=== PATIENT | male | born 1945 | race Two or more races ===

== ENCOUNTER 2022-12-02 18:22 | Inpatient (IN) | payer OTHER ==
[2022-12-02 18:58] VITALS: BMI 26.6
[2022-12-02 21:01] LABS: BASO % 0.4 % (0-2.0); EOS % 6.6 % (0-4.5); HEMATOCRIT 34.5 % (35.4-49); HEMOGLOBIN 12.2 GM/dL (11.7-16.9); LYMPH % 27.5 % (8-40); MCH 31.2 pg (25.7-33.7); MCHC 35.4 g/dl (32.0-35.9); MEAN CELL VOLUME 88.2 fl (80-96); NEUT % 56.5 % (42.8-82.8); PLATELET COUNT 304 10^3/uL (134-434); RBC 3.91 M/mm3 (4.00-5.60); RDW 14.7 % (11.9-15.9); WHITE BLOOD COUNT 7.4 K/mm3 (4.0-10.0)
[2022-12-02 21:07] LABS: INR 1.16 (0.83-1.09); PROTHROMBIN TIME (PATIENT) 13.4 SEC (9.7-13.0)
[2022-12-02 21:09] LABS: ACTIVATED PTT 35.2 SECONDS (25.2-36.5)
[2022-12-02 21:20] LABS: POTASSIUM 4.4 mmol/L (3.5-5.1)
[2022-12-02 21:22] LABS: ALBUMIN 3.6 g/dl (3.4-5.0); BLOOD UREA NITROGEN 17.6 mg/dL (7-18); MAGNESIUM 1.5 mg/dL (1.8-2.4)
[2022-12-02 21:25] LABS: CREATININE 1.6 mg/dL (0.55-1.3)
[2022-12-02 21:27] LABS: TOT PROT 7.5 g/dl (6.4-8.2)
[2022-12-02] MEDS ORDERED: SODIUM CHLORIDE 0.9% 500 ML INFUS.BAG IV ONE (22:01)
[2022-12-02 23:52] LABS: EPI CELLS 3 /uL (0-25.1); HYALINE CASTS 1 /uL (0-3.1); PH,URINE 8.5 (5.0-8.0); URINE APPEARANCE CLOUDY; URINE BACTERIA >9,000 /uL (0-1359); URINE BILIRUBIN NEGATIVE (NEGATIVE); URINE COLOR YELLOW; URINE GLUCOSE (UA) NEGATIVE (NEGATIVE); URINE KETONE TRACE (NEGATIVE); URINE LEUK ESTERASE 2+ (NEGATIVE); URINE NITRITE NEGATIVE (NEGATIVE); URINE PROTEIN 2+ (NEGATIVE); URINE WBC 320 /uL (0-25.8)
[2022-12-03] MEDS ORDERED: NITROGLYCERIN 25MG/D5W 250ML 25 MG/250 ML ML IVPB ONE (00:04)
[2022-12-03] MEDS ORDERED: FUROSEMIDE 40 MG/4 ML INJECTABLE VIAL ONE (00:33)
[2022-12-03] MEDS ORDERED: MINERAL OIL ENEMA 133 ML ENEMA RC ONE (04:07)
[2022-12-03] MEDS ORDERED: POLYETHYLENE GLYCOL (HEALTHYLAX) 3350 17 GM PACKET PO ONE (04:15)
[2022-12-03] MEDS ORDERED: MAGNESIUM CITRATE 300 ML BOTTLE PO ONE (04:30)
[2022-12-03] MEDS ORDERED: SODIUM CHLORIDE 1,000 ML IV SCH (04:30)
[2022-12-03] MEDS ORDERED: MAGNESIUM CITRATE 300 ML BOTTLE ONE (05:52)
[2022-12-03] MEDS ORDERED: HEPARIN NA (PORCINE) 5,000 UNITS/ML 1ML VIAL ONE (05:52)
[2022-12-03] MEDS ORDERED: POLYETHYLENE GLYCOL (HEALTHYLAX) 3350 17 GM PACKET ONE (05:52)
[2022-12-03] MEDS: HEPARIN NA (PORCINE) 5,000 UNITS/ML 1ML VIAL SQ SCH ×3 (06:19→22:46)
[2022-12-03] MEDS ORDERED: sitaGLIPtin PHOSPHATE 50 MG TABLET PO SCH (07:00)
[2022-12-03] MEDS ORDERED: TAMSULOSIN HCL 0.4 MG CAP PO SCH (08:30)
[2022-12-03] MEDS: metroNIDAZOLE 250 MG TABLET PO SCH ×3 (08:58→22:46)
[2022-12-03] MEDS ORDERED: POLYETHYLENE GLYCOL (HEALTHYLAX) 3350 17 GM PACKET PO SCH (10:00)
[2022-12-03] MEDS ORDERED: SODIUM PHOSPHATE/NA BIPHOS 133 ML ENEMA RC ONE (10:00)
[2022-12-03] MEDS: amLODIPine BESYLATE 10 MG TABLET (FP) PO SCH (10:32)
[2022-12-03 12:19] LABS: BASO % 0.3 % (0-2.0); EOS % 5.8 % (0-4.5); HEMATOCRIT 35.3 % (35.4-49); HEMOGLOBIN 11.7 GM/dL (11.7-16.9); LYMPH % 25.2 % (8-40); MCH 30.3 pg (25.7-33.7); MCHC 33.2 g/dl (32.0-35.9); MEAN CELL VOLUME 91.3 fl (80-96); MEAN PLT VOLUME 7.5 fl (7.5-11.1); MONO % 8.6 % (3.8-10.2); NEUT % 60.1 % (42.8-82.8); PLATELET COUNT 296 10^3/uL (134-434); RBC 3.86 M/mm3 (4.00-5.60); RDW 14.6 % (11.9-15.9); WHITE BLOOD COUNT 6.7 K/mm3 (4.0-10.0)
[2022-12-03 12:37] LABS: POTASSIUM 4.3 mmol/L (3.5-5.1)
[2022-12-03 12:39] LABS: BLOOD UREA NITROGEN 18.6 mg/dL (7-18)
[2022-12-03 12:42] LABS: CREATININE 1.4 mg/dL (0.55-1.3)
[2022-12-03] MEDS ORDERED: D5-1/2NS+10 MEQ KCL - 10 MEQ/1,000 ML INFUS.BAG IV SCH (16:00)
[2022-12-03] MEDS: SODIUM CHLORIDE 1,000 ML IV SCH (16:54)
[2022-12-03] MEDS: CEFTRIAXONE 1 GM in DEXTROSE 5%-WATER - 50 ML IVPB SCH (16:54)
[2022-12-03] MEDS: INSULIN SLIDING SCALE (NOVOLOG) 1 VIAL SQ SCH (17:21)
[2022-12-03] MEDS ORDERED: FLU VACCINE (FLULAVAL) PF 60 MCG/0.5 ML SYRINGE 2023-2024 IM ONE (20:00)
[2022-12-03] MEDS ORDERED: SENNOSIDES 8.6MG TABLET (FP) PO SCH (22:00)
[2022-12-03] MEDS: ATORVASTATIN CA 10 MG TABLET (FP) PO SCH (22:46)
[2022-12-03] MEDS: TAMSULOSIN HCL 0.4 MG CAP PO SCH (22:46)
[2022-12-04] MEDS: HEPARIN NA (PORCINE) 5,000 UNITS/ML 1ML VIAL SQ SCH ×3 (06:15→21:12)
[2022-12-04] MEDS: metroNIDAZOLE 250 MG TABLET PO SCH ×3 (06:15→21:10)
[2022-12-04] MEDS: INSULIN SLIDING SCALE (NOVOLOG) 1 VIAL SQ SCH ×3 (06:19→17:10)
[2022-12-04] MEDS ORDERED: PNEUMOC 20-VAL CONJ-DIP CRM/PF 0.5 ML SYRINGE IM ONE (10:00)
[2022-12-04 10:01] LABS: BASO % 0.4 % (0-2.0); EOS % 4.8 % (0-4.5); HEMATOCRIT 31.5 % (35.4-49); HEMOGLOBIN 10.7 GM/dL (11.7-16.9); LYMPH % 24.8 % (8-40); MCH 30.4 pg (25.7-33.7); MEAN CELL VOLUME 89.6 fl (80-96); MEAN PLT VOLUME 7.5 fl (7.5-11.1); MONO % 7.6 % (3.8-10.2); NEUT % 62.4 % (42.8-82.8); PLATELET COUNT 297 10^3/uL (134-434); RBC 3.52 M/mm3 (4.00-5.60); RDW 14.6 % (11.9-15.9); WHITE BLOOD COUNT 6.9 K/mm3 (4.0-10.0)
[2022-12-04 10:35] LABS: POTASSIUM 4.3 mmol/L (3.5-5.1)
[2022-12-04 10:38] LABS: ALBUMIN 3.1 g/dl (3.4-5.0); CALCIUM 8.7 mg/dL (8.5-10.1); MAGNESIUM 1.8 mg/dL (1.8-2.4)
[2022-12-04 10:42] LABS: BILIRUBIN,TOTAL 0.6 mg/dL (0.2-1); CREATININE 1.4 mg/dL (0.55-1.3); PHOSPHOROUS 2.4 mg/dL (2.5-4.9)
[2022-12-04 10:43] LABS: TOT PROT 6.5 g/dl (6.4-8.2)
[2022-12-04] MEDS: amLODIPine BESYLATE 10 MG TABLET (FP) PO SCH (10:51)
[2022-12-04] MEDS: CEFTRIAXONE 1 GM in DEXTROSE 5%-WATER - 50 ML IVPB SCH (10:51)
[2022-12-04 11:33] LABS: EPI CELLS 15 /uL (0-25.1); HYALINE CASTS 1 /uL (0-3.1); PH,URINE 5.5 (5.0-8.0); URINE APPEARANCE CLEAR; URINE BACTERIA 9 /uL (0-1359); URINE BILIRUBIN NEGATIVE (NEGATIVE); URINE COLOR YELLOW; URINE GLUCOSE (UA) NEGATIVE (NEGATIVE); URINE KETONE 2+ (NEGATIVE); URINE LEUK ESTERASE 1+ (NEGATIVE); URINE NITRITE NEGATIVE (NEGATIVE); URINE PROTEIN 1+ (NEGATIVE); URINE UROBILINOGEN 0.2 mg/dL (0.2-1.0); URINE WBC 170 /uL (0-25.8)
[2022-12-04 11:36] LABS: URINE RBC 170.8 /uL (0-23.9); YEAST NEGATIVE (NEGATIVE)
[2022-12-04] MEDS ORDERED: NAPH,MB-DB/K PH,MBDB POWDER PACKET PO ONE (12:30)
[2022-12-04] MEDS: SODIUM CHLORIDE 1,000 ML IV SCH (21:10)
[2022-12-04] MEDS: TAMSULOSIN HCL 0.4 MG CAP PO SCH (21:11)
[2022-12-04] MEDS: ATORVASTATIN CA 10 MG TABLET (FP) PO SCH (21:12)
[2022-12-05] MEDS: metroNIDAZOLE 250 MG TABLET PO SCH ×3 (05:26→21:16)
[2022-12-05] MEDS: HEPARIN NA (PORCINE) 5,000 UNITS/ML 1ML VIAL SQ SCH ×3 (05:26→21:17)
[2022-12-05] MEDS: INSULIN SLIDING SCALE (NOVOLOG) 1 VIAL SQ SCH ×3 (06:51→18:07)
[2022-12-05] MEDS: CEFTRIAXONE 1 GM in DEXTROSE 5%-WATER - 50 ML IVPB SCH (09:36)
[2022-12-05] MEDS: amLODIPine BESYLATE 10 MG TABLET (FP) PO SCH (09:36)
[2022-12-05] MEDS: SODIUM CHLORIDE 1,000 ML IV SCH (09:38)
[2022-12-05 10:27] LABS: BASO % 0.6 % (0-2.0); EOS % 5.1 % (0-4.5); HEMATOCRIT 33.1 % (35.4-49); HEMOGLOBIN 11.4 GM/dL (11.7-16.9); LYMPH % 31.2 % (8-40); MCH 30.6 pg (25.7-33.7); MCHC 34.3 g/dl (32.0-35.9); MEAN CELL VOLUME 89.1 fl (80-96); MEAN PLT VOLUME 7.2 fl (7.5-11.1); MONO % 8.2 % (3.8-10.2); NEUT % 54.9 % (42.8-82.8); PLATELET COUNT 295 10^3/uL (134-434); RBC 3.72 M/mm3 (4.00-5.60); RDW 14.8 % (11.9-15.9); WHITE BLOOD COUNT 7.2 K/mm3 (4.0-10.0)
[2022-12-05 10:37] LABS: POTASSIUM 4.2 mmol/L (3.5-5.1)
[2022-12-05 10:41] LABS: CALCIUM 8.6 mg/dL (8.5-10.1)
[2022-12-05 10:42] LABS: ALBUMIN 3.1 g/dl (3.4-5.0); BLOOD UREA NITROGEN 15.4 mg/dL (7-18); MAGNESIUM 1.8 mg/dL (1.8-2.4)
[2022-12-05 10:45] LABS: CREATININE 1.3 mg/dL (0.55-1.3); PHOSPHOROUS 2.4 mg/dL (2.5-4.9)
[2022-12-05 10:46] LABS: BILIRUBIN,TOTAL 0.6 mg/dL (0.2-1); TOT PROT 6.7 g/dl (6.4-8.2)
[2022-12-05] MEDS: NAPH,MB-DB/K PH,MBDB POWDER PACKET PO SCH ×2 (15:42→21:17)
[2022-12-05] MEDS: TAMSULOSIN HCL 0.4 MG CAP PO SCH (21:17)
[2022-12-05] MEDS: ATORVASTATIN CA 10 MG TABLET (FP) PO SCH (21:17)
[2022-12-06] MEDS: SODIUM CHLORIDE 1,000 ML IV SCH ×2 (04:29→20:59)
[2022-12-06] MEDS: HEPARIN NA (PORCINE) 5,000 UNITS/ML 1ML VIAL SQ SCH ×3 (05:10→21:24)
[2022-12-06] MEDS: metroNIDAZOLE 250 MG TABLET PO SCH ×3 (05:10→21:24)
[2022-12-06] MEDS: INSULIN SLIDING SCALE (NOVOLOG) 1 VIAL SQ SCH ×3 (06:30→17:39)
[2022-12-06 08:43] LABS: BASO % 0.4 % (0-2.0); EOS % 6.4 % (0-4.5); HEMATOCRIT 34.8 % (35.4-49); HEMOGLOBIN 11.6 GM/dL (11.7-16.9); LYMPH % 19.8 % (8-40); MCH 29.8 pg (25.7-33.7); MCHC 33.3 g/dl (32.0-35.9); MEAN CELL VOLUME 89.6 fl (80-96); MEAN PLT VOLUME 7.1 fl (7.5-11.1); NEUT % 65.4 % (42.8-82.8); PLATELET COUNT 313 10^3/uL (134-434); RBC 3.88 M/mm3 (4.00-5.60); RDW 14.7 % (11.9-15.9); WHITE BLOOD COUNT 6.2 K/mm3 (4.0-10.0)
[2022-12-06] MEDS: CEFTRIAXONE 1 GM in DEXTROSE 5%-WATER - 50 ML IVPB SCH (09:14)
[2022-12-06] MEDS: amLODIPine BESYLATE 10 MG TABLET (FP) PO SCH (09:15)
[2022-12-06] MEDS: LACTOBACILLUS ACIDOPHILUS 1 TABLET PO SCH (09:15)
[2022-12-06 09:22] LABS: BILIRUBIN,TOTAL 0.6 mg/dL (0.2-1); CALCIUM 8.6 mg/dL (8.5-10.1); CREATININE 1.2 mg/dL (0.55-1.3); MAGNESIUM 1.5 mg/dL (1.8-2.4); PHOSPHOROUS 2.3 mg/dL (2.5-4.9); POTASSIUM 4.3 mmol/L (3.5-5.1); TOT PROT 6.7 g/dl (6.4-8.2)
[2022-12-06] MEDS ORDERED: MAGNESIUM SULF 50% (8.12 MEQ/2 ML-1 GM VIAL) IVPB ONE (10:30)
[2022-12-06] MEDS ORDERED: SODIUM PHOSPHATE - 15 MM in SODIUM CHLORIDE 250 ML IVPB ONE (11:00)
[2022-12-06 13:58] LABS: ERYTHROCYTE SEDIMENTATION RATE 95 mm/hr (0-20)
[2022-12-06] MEDS: ATORVASTATIN CA 10 MG TABLET (FP) PO SCH (21:24)
[2022-12-06] MEDS: TAMSULOSIN HCL 0.4 MG CAP PO SCH (21:24)
[2022-12-07] MEDS: HEPARIN NA (PORCINE) 5,000 UNITS/ML 1ML VIAL SQ SCH ×3 (06:08→21:36)
[2022-12-07] MEDS: metroNIDAZOLE 250 MG TABLET PO SCH ×3 (06:08→21:35)
[2022-12-07] MEDS: INSULIN SLIDING SCALE (NOVOLOG) 1 VIAL SQ SCH ×3 (06:21→17:37)
[2022-12-07] MEDS: LACTOBACILLUS ACIDOPHILUS 1 TABLET PO SCH (09:48)
[2022-12-07] MEDS: CEFTRIAXONE 1 GM in DEXTROSE 5%-WATER - 50 ML IVPB SCH (09:48)
[2022-12-07] MEDS: amLODIPine BESYLATE 10 MG TABLET (FP) PO SCH (09:48)
[2022-12-07 11:11] LABS: BASO % 0.5 % (0-2.0); EOS % 6.7 % (0-4.5); HEMATOCRIT 32.9 % (35.4-49); HEMOGLOBIN 11.3 GM/dL (11.7-16.9); LYMPH % 21.2 % (8-40); MCH 30.6 pg (25.7-33.7); MCHC 34.4 g/dl (32.0-35.9); MEAN PLT VOLUME 7.3 fl (7.5-11.1); MONO % 8.3 % (3.8-10.2); NEUT % 63.3 % (42.8-82.8); PLATELET COUNT 305 10^3/uL (134-434); RDW 15.1 % (11.9-15.9); WHITE BLOOD COUNT 5.6 K/mm3 (4.0-10.0)
[2022-12-07 11:36] LABS: POTASSIUM 3.9 mmol/L (3.5-5.1)
[2022-12-07 11:47] LABS: CALCIUM 8.2 mg/dL (8.5-10.1)
[2022-12-07 11:48] LABS: BLOOD UREA NITROGEN 11.1 mg/dL (7-18); CREATININE 1.2 mg/dL (0.55-1.3); MAGNESIUM 1.8 mg/dL (1.8-2.4)
[2022-12-07 11:51] LABS: PHOSPHOROUS 2.1 mg/dL (2.5-4.9)
[2022-12-07 11:52] LABS: TOT PROT 6.3 g/dl (6.4-8.2)
[2022-12-07 11:53] LABS: BILIRUBIN,TOTAL 0.5 mg/dL (0.2-1)
[2022-12-07] MEDS: SODIUM CHLORIDE 1,000 ML IV SCH (17:36)
[2022-12-07] MEDS: TAMSULOSIN HCL 0.4 MG CAP PO SCH (21:35)
[2022-12-07] MEDS: ATORVASTATIN CA 10 MG TABLET (FP) PO SCH (21:35)
[2022-12-08] MEDS: metroNIDAZOLE 250 MG TABLET PO SCH ×3 (06:05→22:28)
[2022-12-08] MEDS: HEPARIN NA (PORCINE) 5,000 UNITS/ML 1ML VIAL SQ SCH ×3 (06:05→22:28)
[2022-12-08] MEDS: INSULIN SLIDING SCALE (NOVOLOG) 1 VIAL SQ SCH ×3 (06:31→16:43)
[2022-12-08] MEDS: SODIUM CHLORIDE 1,000 ML IV SCH (07:07)
[2022-12-08] MEDS: LACTOBACILLUS ACIDOPHILUS 1 TABLET PO SCH (09:27)
[2022-12-08] MEDS: CEFTRIAXONE 1 GM in DEXTROSE 5%-WATER - 50 ML IVPB SCH (09:27)
[2022-12-08] MEDS: amLODIPine BESYLATE 10 MG TABLET (FP) PO SCH (09:27)
[2022-12-08] MEDS ORDERED: MAGNESIUM 1GM/D5W 100ML - 100 ML IVPB IVPB ONE (14:00)
[2022-12-08] MEDS: ATORVASTATIN CA 10 MG TABLET (FP) PO SCH (22:29)
[2022-12-08] MEDS: TAMSULOSIN HCL 0.4 MG CAP PO SCH (22:29)
[2022-12-09] MEDS: metroNIDAZOLE 250 MG TABLET PO SCH ×2 (06:39→13:23)
[2022-12-09] MEDS: HEPARIN NA (PORCINE) 5,000 UNITS/ML 1ML VIAL SQ SCH ×2 (06:40→13:23)
[2022-12-09] MEDS: INSULIN SLIDING SCALE (NOVOLOG) 1 VIAL SQ SCH ×3 (06:44→16:22)
[2022-12-09 07:28] VITALS: RESP 18
[2022-12-09] MEDS: amLODIPine BESYLATE 10 MG TABLET (FP) PO SCH (09:26)
[2022-12-09] MEDS: CEFTRIAXONE 1 GM in DEXTROSE 5%-WATER - 50 ML IVPB SCH (09:26)
[2022-12-09] MEDS: LACTOBACILLUS ACIDOPHILUS 1 TABLET PO SCH (09:26)
[2022-12-09 14:22] VITALS: BP 127/56; PULSE 81; TEMP 98.7
[2022-12-09] MEDS: SODIUM CHLORIDE 1,000 ML IV SCH ×2 (14:48→16:21)
== END 2022-12-09 17:00 | disposition home or self-care (01) | DRG 249 ==
LOC: JER 18:22 → JERBED 12-03 00:53 → J5S 12-03 07:57
PROVIDERS: ADMIT Internal Medicine; ATTEND Internal Medicine
DX: A09 Infectious gastroenteritis and colitis, unspecified (principal); I10 Essential (primary) hypertension; E11.9 Type 2 diabetes mellitus without complications; Z79.84 Long term (current) use of oral hypoglycemic drugs; N40.0 Benign prostatic hyperplasia without lower urinary tract symptoms; K59.09 Other constipation; N17.9 Acute kidney failure, unspecified; R33.8 Other retention of urine; E78.5 Hyperlipidemia, unspecified; N39.0 Urinary tract infection, site not specified; B96.4 Proteus (mirabilis) (morganii) as the cause of diseases classified elsewhere
CPT/HCPCS: 36415; 74177-TC; 76775-TC; 80048; 80053; 81003; 82272; 82570; 82728; 82962; 83036; 83540; 83550; 83735; 83935; 83993; 84100; 84300; 84443; 84540; 85025; 85610; 85651; 85730; 86140; 87045; 87046; 87086; 87186; 87205; 87209; 87324; 87449; 90677; 90686; 97116-GP; 97162-GP; 99285-25; G0008; J1644; Q9967

== ENCOUNTER 2023-01-31 11:40 | Inpatient (IN) | payer OTHER ==
[2023-01-31 12:56] LABS: BASO % 0.3 % (0-2.0); EOS % 2.5 % (0-4.5); HEMATOCRIT 35.6 % (35.4-49); HEMOGLOBIN 12.1 GM/dL (11.7-16.9); LYMPH % 27.2 % (8-40); MCH 29.7 pg (25.7-33.7); MCHC 33.9 g/dl (32.0-35.9); MEAN CELL VOLUME 87.5 fl (80-96); MEAN PLT VOLUME 7.1 fl (7.5-11.1); PLATELET COUNT 292 10^3/uL (134-434); RBC 4.07 M/mm3 (4.00-5.60); RDW 13.9 % (11.9-15.9); WHITE BLOOD COUNT 5.9 K/mm3 (4.0-10.0)
[2023-01-31 13:06] LABS: POTASSIUM 4.1 mmol/L (3.5-5.1)
[2023-01-31 13:08] LABS: CALCIUM 9.2 mg/dL (8.5-10.1)
[2023-01-31 13:09] LABS: ALBUMIN 3.3 g/dl (3.4-5.0); BLOOD UREA NITROGEN 17.2 mg/dL (7-18)
[2023-01-31 13:12] LABS: CREATININE 1.2 mg/dL (0.55-1.3)
[2023-01-31 13:13] LABS: EPI CELLS 2 /uL (0-25.1); HYALINE CASTS 1 /uL (0-3.1); URINE APPEARANCE CLOUDY; URINE BACTERIA >9,000 /uL (0-1359); URINE BILIRUBIN NEGATIVE (NEGATIVE); URINE COLOR YELLOW; URINE GLUCOSE (UA) NEGATIVE (NEGATIVE); URINE KETONE NEGATIVE (NEGATIVE); URINE LEUK ESTERASE 3+ (NEGATIVE); URINE NITRITE POSITIVE (NEGATIVE); URINE PROTEIN TRACE (NEGATIVE); URINE RBC 19 /uL (0-23.9); URINE UROBILINOGEN 0.2 mg/dL (0.2-1.0); URINE WBC 579 /uL (0-25.8)
[2023-01-31 13:14] LABS: BILIRUBIN,TOTAL 0.6 mg/dL (0.2-1); TOT PROT 7.2 g/dl (6.4-8.2)
[2023-01-31 13:17] LABS: INR 1.12 (0.83-1.09); N-TERMINAL BNP 183.3 pg/ml (5-450)
[2023-01-31 13:20] LABS: ACTIVATED PTT 33.6 SECONDS (25.2-36.5)
[2023-01-31 13:39] LABS: YEAST 3+ (NEGATIVE)
[2023-01-31] MEDS: INSULIN ASPART SLIDING SCALE (NOVOLOG) 1 VIAL SQ SCH (22:40)
[2023-01-31] MEDS ORDERED: SODIUM CHLORIDE 1,000 ML IV STA (23:14)
[2023-01-31] MEDS ORDERED: SODIUM CHLORIDE 1,000 ML IV SCH (23:15)
[2023-01-31 23:42] VITALS: BMI 23.5
[2023-02-01] MEDS: INSULIN ASPART SLIDING SCALE (NOVOLOG) 1 VIAL SQ SCH ×4 (06:31→22:15)
[2023-02-01 08:37] LABS: HEMATOCRIT 33.6 % (35.4-49); HEMOGLOBIN 11.5 GM/dL (11.7-16.9); MCH 30.1 pg (25.7-33.7); MCHC 34.3 g/dl (32.0-35.9); MEAN CELL VOLUME 87.8 fl (80-96); MEAN PLT VOLUME 7.4 fl (7.5-11.1); PLATELET COUNT 260 10^3/uL (134-434); RBC 3.83 M/mm3 (4.00-5.60); RDW 14.1 % (11.9-15.9); WHITE BLOOD COUNT 5.1 K/mm3 (4.0-10.0)
[2023-02-01] MEDS: TAMSULOSIN HCL 0.4 MG CAP PO SCH (09:14)
[2023-02-01 09:21] LABS: BLOOD UREA NITROGEN 14.2 mg/dL (7-18)
[2023-02-01 09:22] LABS: CALCIUM 8.8 mg/dL (8.5-10.1)
[2023-02-01 09:25] LABS: ALBUMIN 2.9 g/dl (3.4-5.0)
[2023-02-01 09:27] LABS: CREATININE 1.1 mg/dL (0.55-1.3)
[2023-02-01 09:28] LABS: BILIRUBIN,DIRECT 0.2 mg/dL (0.0-0.2)
[2023-02-01 09:30] LABS: BILIRUBIN,TOTAL 0.5 mg/dL (0.2-1); TOT PROT 6.5 g/dl (6.4-8.2)
[2023-02-01] MEDS ORDERED: ENOXAPARIN NA (PORCINE) 40 MG/0.4 ML DISP.SYRIN SQ SCH (10:00)
[2023-02-01] MEDS ORDERED: amLODIPine BESYLATE 10 MG TABLET (FP) PO SCH (10:00)
[2023-02-01] MEDS: SODIUM CHLORIDE 1,000 ML IV SCH (16:33)
[2023-02-01 20:12] LABS: HIV INTERPRETATION NEGATIVE (NEGATIVE)
[2023-02-01] MEDS: ATORVASTATIN CA 10 MG TABLET (FP) PO SCH (22:12)
[2023-02-02] MEDS: INSULIN ASPART SLIDING SCALE (NOVOLOG) 1 VIAL SQ SCH ×4 (06:05→21:37)
[2023-02-02] MEDS: SODIUM CHLORIDE 1,000 ML IV SCH ×2 (06:06→16:41)
[2023-02-02] MEDS ORDERED: cefTRIAXone SODIUM 1 GM VIAL ONE (09:47)
[2023-02-02] MEDS ORDERED: CEFTRIAXONE 1 GM in DEXTROSE 5%-WATER - 50 ML IVPB SCH (10:00)
[2023-02-02] MEDS: TAMSULOSIN HCL 0.4 MG CAP PO SCH (10:01)
[2023-02-02 10:34] LABS: HEMATOCRIT 33.4 % (35.4-49); HEMOGLOBIN 11.2 GM/dL (11.7-16.9); MCH 29.4 pg (25.7-33.7); MCHC 33.7 g/dl (32.0-35.9); MEAN CELL VOLUME 87.4 fl (80-96); MEAN PLT VOLUME 7.3 fl (7.5-11.1); PLATELET COUNT 249 10^3/uL (134-434); RBC 3.82 M/mm3 (4.00-5.60); RDW 14.1 % (11.9-15.9); WHITE BLOOD COUNT 4.8 K/mm3 (4.0-10.0)
[2023-02-02 11:09] LABS: POTASSIUM 3.9 mmol/L (3.5-5.1)
[2023-02-02] MEDS ORDERED: PEG 3350/NA SULF BICARB CL/KCL 4000 ML SOLN.RECON PO ONE (11:54)
[2023-02-02 12:07] LABS: ALBUMIN 2.8 g/dl (3.4-5.0)
[2023-02-02 12:08] LABS: BLOOD UREA NITROGEN 9.6 mg/dL (7-18); CALCIUM 8.4 mg/dL (8.5-10.1)
[2023-02-02 12:11] LABS: CREATININE 0.9 mg/dL (0.55-1.3)
[2023-02-02 12:12] LABS: BILIRUBIN,TOTAL 0.6 mg/dL (0.2-1); TOT PROT 6.1 g/dl (6.4-8.2)
[2023-02-02] MEDS ORDERED: MEROPENEM 1 GM in DEXTROSE 5%-WATER 100 ML IVPB ONE (17:58)
[2023-02-02] MEDS: MEROPENEM 1 GM in DEXTROSE 5%-WATER 100 ML IVPB SCH (18:18)
[2023-02-02] MEDS: ATORVASTATIN CA 10 MG TABLET (FP) PO SCH (21:33)
[2023-02-03] MEDS: MEROPENEM 1 GM in DEXTROSE 5%-WATER 100 ML IVPB SCH ×3 (01:36→21:40)
[2023-02-03] MEDS ORDERED: MEROPENEM 1 GM in DEXTROSE 5%-WATER 100 ML IVPB SCH (02:00)
[2023-02-03] MEDS: INSULIN ASPART SLIDING SCALE (NOVOLOG) 1 VIAL SQ SCH ×4 (05:59→21:50)
[2023-02-03] MEDS: TAMSULOSIN HCL 0.4 MG CAP PO SCH (10:20)
[2023-02-03 10:53] LABS: BASO % 0.5 % (0-2.0); EOS % 3.7 % (0-4.5); HEMOGLOBIN 11.9 GM/dL (11.7-16.9); LYMPH % 27.4 % (8-40); MCH 29.7 pg (25.7-33.7); MCHC 33.9 g/dl (32.0-35.9); MEAN CELL VOLUME 87.4 fl (80-96); MEAN PLT VOLUME 7.6 fl (7.5-11.1); MONO % 10.1 % (3.8-10.2); NEUT % 58.3 % (42.8-82.8); PLATELET COUNT 277 10^3/uL (134-434); RBC 4.01 M/mm3 (4.00-5.60); RDW 14.1 % (11.9-15.9); WHITE BLOOD COUNT 5.1 K/mm3 (4.0-10.0)
[2023-02-03 11:10] LABS: CALCIUM 8.5 mg/dL (8.5-10.1)
[2023-02-03 11:11] LABS: ALBUMIN 2.9 g/dl (3.4-5.0); BLOOD UREA NITROGEN 9.3 mg/dL (7-18); MAGNESIUM 1.5 mg/dL (1.8-2.4)
[2023-02-03 11:15] LABS: CREATININE 1.1 mg/dL (0.55-1.3); PHOSPHOROUS 2.7 mg/dL (2.5-4.9)
[2023-02-03 11:16] LABS: BILIRUBIN,TOTAL 0.8 mg/dL (0.2-1); TOT PROT 6.5 g/dl (6.4-8.2)
[2023-02-03] MEDS: ATORVASTATIN CA 10 MG TABLET (FP) PO SCH (21:50)
[2023-02-03] MEDS ORDERED: ACETAMINOPHEN 1000 MG/100 ML BAG IVPB ONE (22:00)
[2023-02-04] MEDS: MEROPENEM 1 GM in DEXTROSE 5%-WATER 100 ML IVPB SCH ×2 (05:15→18:20)
[2023-02-04] MEDS: INSULIN ASPART SLIDING SCALE (NOVOLOG) 1 VIAL SQ SCH ×4 (06:24→21:57)
[2023-02-04] MEDS: TAMSULOSIN HCL 0.4 MG CAP PO SCH (09:22)
[2023-02-04 10:18] LABS: HEMATOCRIT 34.2 % (35.4-49); HEMOGLOBIN 11.6 GM/dL (11.7-16.9); MCH 29.6 pg (25.7-33.7); MCHC 34.1 g/dl (32.0-35.9); MEAN CELL VOLUME 86.8 fl (80-96); MEAN PLT VOLUME 7.6 fl (7.5-11.1); PLATELET COUNT 258 10^3/uL (134-434); RBC 3.94 M/mm3 (4.00-5.60); RDW 14.1 % (11.9-15.9); WHITE BLOOD COUNT 4.5 K/mm3 (4.0-10.0)
[2023-02-04 10:29] LABS: POTASSIUM 4.1 mmol/L (3.5-5.1)
[2023-02-04 10:34] LABS: ALBUMIN 2.8 g/dl (3.4-5.0); BLOOD UREA NITROGEN 10.8 mg/dL (7-18)
[2023-02-04 10:37] LABS: CREATININE 1.1 mg/dL (0.55-1.3)
[2023-02-04 10:39] LABS: BILIRUBIN,TOTAL 0.9 mg/dL (0.2-1); TOT PROT 6.1 g/dl (6.4-8.2)
[2023-02-04] MEDS: ATORVASTATIN CA 10 MG TABLET (FP) PO SCH (21:43)
[2023-02-05] MEDS ORDERED: MEROPENEM 1 GM VIAL (RESTRICTED TO ID) IVPB ONE (01:10)
[2023-02-05] MEDS: MEROPENEM 1 GM in DEXTROSE 5%-WATER 100 ML IVPB SCH ×3 (01:15→10:00)
[2023-02-05] MEDS: INSULIN ASPART SLIDING SCALE (NOVOLOG) 1 VIAL SQ SCH ×4 (06:22→21:45)
[2023-02-05] MEDS: TAMSULOSIN HCL 0.4 MG CAP PO SCH (10:00)
[2023-02-05 10:11] LABS: BASO % 0.4 % (0-2.0); EOS % 4.3 % (0-4.5); HEMATOCRIT 34.9 % (35.4-49); MCH 30.1 pg (25.7-33.7); MCHC 34.4 g/dl (32.0-35.9); MEAN CELL VOLUME 87.5 fl (80-96); MEAN PLT VOLUME 7.4 fl (7.5-11.1); MONO % 8.9 % (3.8-10.2); NEUT % 58.4 % (42.8-82.8); PLATELET COUNT 256 10^3/uL (134-434); RBC 3.99 M/mm3 (4.00-5.60); RDW 13.6 % (11.9-15.9); WHITE BLOOD COUNT 4.9 K/mm3 (4.0-10.0)
[2023-02-05 10:34] LABS: ALBUMIN 2.9 g/dl (3.4-5.0); BLOOD UREA NITROGEN 10.7 mg/dL (7-18); CALCIUM 9.4 mg/dL (8.5-10.1); MAGNESIUM 1.7 mg/dL (1.8-2.4)
[2023-02-05 10:37] LABS: PHOSPHOROUS 2.4 mg/dL (2.5-4.9)
[2023-02-05 10:39] LABS: BILIRUBIN,TOTAL 0.5 mg/dL (0.2-1); TOT PROT 6.3 g/dl (6.4-8.2)
[2023-02-05] MEDS ORDERED: MAGNESIUM CITRATE 300 ML BOTTLE PO ONE (16:23)
[2023-02-05] MEDS: PIPERACILLIN/TAZOB 3.375 GM 3.375 GM in DEXTROSE 5%-WATER - 50 ML IVPB SCH (18:02)
[2023-02-05] MEDS: MESALAMINE 1000 MG/SUPP.RECT SUPP RC SCH (18:02)
[2023-02-05] MEDS: ATORVASTATIN CA 10 MG TABLET (FP) PO SCH (21:42)
[2023-02-06] MEDS: PIPERACILLIN/TAZOB 3.375 GM 3.375 GM in DEXTROSE 5%-WATER - 50 ML IVPB SCH ×2 (01:00→10:24)
[2023-02-06] MEDS: INSULIN ASPART SLIDING SCALE (NOVOLOG) 1 VIAL SQ SCH ×4 (07:31→21:31)
[2023-02-06] MEDS: TAMSULOSIN HCL 0.4 MG CAP PO SCH (10:24)
[2023-02-06 10:25] LABS: INR 1.12 (0.83-1.09)
[2023-02-06 10:32] LABS: HEMATOCRIT 39.2 % (35.4-49); HEMOGLOBIN 13.1 GM/dL (11.7-16.9); MCH 29.6 pg (25.7-33.7); MCHC 33.5 g/dl (32.0-35.9); MEAN CELL VOLUME 88.3 fl (80-96); RBC 4.43 M/mm3 (4.00-5.60); RDW 14.1 % (11.9-15.9)
[2023-02-06 10:33] LABS: WHITE BLOOD COUNT 12.3 K/mm3 (4.0-10.0)
[2023-02-06 10:49] LABS: POTASSIUM 4.5 mmol/L (3.5-5.1)
[2023-02-06] MEDS: MESALAMINE 1000 MG/SUPP.RECT SUPP RC SCH (11:02)
[2023-02-06 11:07] LABS: ALBUMIN 3.3 g/dl (3.4-5.0); BLOOD UREA NITROGEN 11.4 mg/dL (7-18); CALCIUM 10.2 mg/dL (8.5-10.1); MAGNESIUM 1.9 mg/dL (1.8-2.4)
[2023-02-06 11:10] LABS: CREATININE 1.1 mg/dL (0.55-1.3); PHOSPHOROUS 2.5 mg/dL (2.5-4.9)
[2023-02-06 11:11] LABS: BILIRUBIN,TOTAL 1.1 mg/dL (0.2-1); TOT PROT 7.3 g/dl (6.4-8.2)
[2023-02-06 11:17] LABS: HEPATITIS B SURFACE AG MATERN NON-REACTIVE (NONREACTIVE)
[2023-02-06 12:39] LABS: ANISOCYTOSIS 0; MACROCYTOSIS 0
[2023-02-06] MEDS: MEROPENEM 1 GM in DEXTROSE 5%-WATER 100 ML IVPB SCH (18:20)
[2023-02-06] MEDS: POLYETHYLENE GLYCOL (HEALTHYLAX) 3350 17 GM PACKET PO SCH (21:32)
[2023-02-06] MEDS: ATORVASTATIN CA 10 MG TABLET (FP) PO SCH (21:32)
[2023-02-07] MEDS: MEROPENEM 1 GM in DEXTROSE 5%-WATER 100 ML IVPB SCH ×2 (02:56→09:47)
[2023-02-07] MEDS: INSULIN ASPART SLIDING SCALE (NOVOLOG) 1 VIAL SQ SCH ×4 (07:02→22:04)
[2023-02-07] MEDS: TAMSULOSIN HCL 0.4 MG CAP PO SCH (08:43)
[2023-02-07 09:27] LABS: HEMATOCRIT 36.3 % (35.4-49); HEMOGLOBIN 12.4 GM/dL (11.7-16.9); MCH 29.9 pg (25.7-33.7); MCHC 34.3 g/dl (32.0-35.9); MEAN CELL VOLUME 87.3 fl (80-96); MEAN PLT VOLUME 7.5 fl (7.5-11.1); PLATELET COUNT 304 10^3/uL (134-434); RBC 4.15 M/mm3 (4.00-5.60); RDW 13.7 % (11.9-15.9); WHITE BLOOD COUNT 5.5 K/mm3 (4.0-10.0)
[2023-02-07 09:43] LABS: POTASSIUM 4.7 mmol/L (3.5-5.1)
[2023-02-07] MEDS: POLYETHYLENE GLYCOL (HEALTHYLAX) 3350 17 GM PACKET PO SCH ×2 (09:47→22:04)
[2023-02-07 09:48] LABS: ALBUMIN 3.2 g/dl (3.4-5.0); BLOOD UREA NITROGEN 10.3 mg/dL (7-18)
[2023-02-07 09:49] LABS: MAGNESIUM 1.9 mg/dL (1.8-2.4)
[2023-02-07 09:51] LABS: CREATININE 1.1 mg/dL (0.55-1.3)
[2023-02-07 09:52] LABS: PHOSPHOROUS 2.6 mg/dL (2.5-4.9)
[2023-02-07 09:53] LABS: BILIRUBIN,TOTAL 0.7 mg/dL (0.2-1)
[2023-02-07 09:54] LABS: CALCIUM 9.6 mg/dL (8.5-10.1)
[2023-02-07] MEDS: MESALAMINE 1000 MG/SUPP.RECT SUPP RC SCH (11:40)
[2023-02-07] MEDS: ATORVASTATIN CA 10 MG TABLET (FP) PO SCH (22:04)
[2023-02-08] MEDS: MEROPENEM 1 GM in DEXTROSE 5%-WATER 100 ML IVPB SCH ×3 (02:06→17:04)
[2023-02-08] MEDS: INSULIN ASPART SLIDING SCALE (NOVOLOG) 1 VIAL SQ SCH ×4 (06:50→22:27)
[2023-02-08 08:10] LABS: CARCINOEMBRYONIC ANTIGEN 46.8 ng/mL (0.0-4.7)
[2023-02-08 08:49] LABS: POTASSIUM 4.3 mmol/L (3.5-5.1)
[2023-02-08 08:51] LABS: HEMATOCRIT 36.7 % (35.4-49); HEMOGLOBIN 12.7 GM/dL (11.7-16.9); MCH 29.7 pg (25.7-33.7); MCHC 34.7 g/dl (32.0-35.9); MEAN CELL VOLUME 85.5 fl (80-96); MEAN PLT VOLUME 7.6 fl (7.5-11.1); PLATELET COUNT 297 10^3/uL (134-434); RBC 4.29 M/mm3 (4.00-5.60); RDW 13.8 % (11.9-15.9); WHITE BLOOD COUNT 5.3 K/mm3 (4.0-10.0)
[2023-02-08] MEDS: TAMSULOSIN HCL 0.4 MG CAP PO SCH (08:53)
[2023-02-08 08:59] LABS: TOT PROT 6.6 g/dl (6.4-8.2)
[2023-02-08 09:04] LABS: ALBUMIN 2.9 g/dl (3.4-5.0); BLOOD UREA NITROGEN 12.6 mg/dL (7-18); CALCIUM 9.6 mg/dL (8.5-10.1); MAGNESIUM 1.8 mg/dL (1.8-2.4)
[2023-02-08 09:07] LABS: PHOSPHOROUS 2.7 mg/dL (2.5-4.9)
[2023-02-08 09:09] LABS: BILIRUBIN,TOTAL 0.6 mg/dL (0.2-1)
[2023-02-08] MEDS: POLYETHYLENE GLYCOL (HEALTHYLAX) 3350 17 GM PACKET PO SCH ×4 (10:00→21:44)
[2023-02-08] MEDS: MESALAMINE 1000 MG/SUPP.RECT SUPP RC SCH ×2 (10:02→12:43)
[2023-02-08] MEDS: ATORVASTATIN CA 10 MG TABLET (FP) PO SCH (21:43)
[2023-02-09] MEDS: MEROPENEM 1 GM in DEXTROSE 5%-WATER 100 ML IVPB SCH ×3 (03:05→17:25)
[2023-02-09] MEDS ORDERED: MEROPENEM 1 GM VIAL (RESTRICTED TO ID) IVPB ONE (03:24)
[2023-02-09] MEDS: INSULIN ASPART SLIDING SCALE (NOVOLOG) 1 VIAL SQ SCH ×4 (05:59→21:53)
[2023-02-09] MEDS ORDERED: INSULIN ASPART SLIDING SCALE (NOVOLOG) 1 VIAL SQ ONE (07:33)
[2023-02-09] MEDS: TAMSULOSIN HCL 0.4 MG CAP PO SCH (08:28)
[2023-02-09] MEDS: POLYETHYLENE GLYCOL (HEALTHYLAX) 3350 17 GM PACKET PO SCH ×3 (09:12→21:49)
[2023-02-09 09:27] LABS: HEMATOCRIT 37.7 % (35.4-49); HEMOGLOBIN 12.8 GM/dL (11.7-16.9); MCH 29.6 pg (25.7-33.7); MEAN CELL VOLUME 86.8 fl (80-96); MEAN PLT VOLUME 7.4 fl (7.5-11.1); PLATELET COUNT 280 10^3/uL (134-434); RBC 4.34 M/mm3 (4.00-5.60); RDW 13.6 % (11.9-15.9)
[2023-02-09 11:37] LABS: POTASSIUM 4.6 mmol/L (3.5-5.1)
[2023-02-09 11:46] LABS: ALBUMIN 3.1 g/dl (3.4-5.0)
[2023-02-09 11:47] LABS: BLOOD UREA NITROGEN 13.9 mg/dL (7-18)
[2023-02-09 11:49] LABS: CALCIUM 9.5 mg/dL (8.5-10.1); MAGNESIUM 1.9 mg/dL (1.8-2.4); PHOSPHOROUS 2.9 mg/dL (2.5-4.9)
[2023-02-09 11:50] LABS: BILIRUBIN,TOTAL 0.9 mg/dL (0.2-1)
[2023-02-09] MEDS: ATORVASTATIN CA 10 MG TABLET (FP) PO SCH (21:49)
[2023-02-10] MEDS: MEROPENEM 1 GM in DEXTROSE 5%-WATER 100 ML IVPB SCH ×3 (01:05→17:51)
[2023-02-10] MEDS: INSULIN ASPART SLIDING SCALE (NOVOLOG) 1 VIAL SQ SCH ×4 (06:00→21:32)
[2023-02-10] MEDS: TAMSULOSIN HCL 0.4 MG CAP PO SCH (08:17)
[2023-02-10 08:26] LABS: HEMATOCRIT 36.4 % (35.4-49); HEMOGLOBIN 12.5 GM/dL (11.7-16.9); MCH 29.9 pg (25.7-33.7); MCHC 34.5 g/dl (32.0-35.9); MEAN CELL VOLUME 86.7 fl (80-96); MEAN PLT VOLUME 7.9 fl (7.5-11.1); PLATELET COUNT 274 10^3/uL (134-434); RDW 13.7 % (11.9-15.9); WHITE BLOOD COUNT 5.5 K/mm3 (4.0-10.0)
[2023-02-10 09:00] LABS: POTASSIUM 4.5 mmol/L (3.5-5.1)
[2023-02-10 09:14] LABS: CALCIUM 9.7 mg/dL (8.5-10.1)
[2023-02-10] MEDS: POLYETHYLENE GLYCOL (HEALTHYLAX) 3350 17 GM PACKET PO SCH ×3 (09:15→21:32)
[2023-02-10 09:18] LABS: CREATININE 0.9 mg/dL (0.55-1.3)
[2023-02-10 09:19] LABS: BILIRUBIN,TOTAL 0.7 mg/dL (0.2-1); TOT PROT 6.8 g/dl (6.4-8.2)
[2023-02-10] MEDS: ACETAMINOPHEN 325 MG TABLET (FP) PO PRN (14:07)
[2023-02-10] MEDS: ATORVASTATIN CA 10 MG TABLET (FP) PO SCH (21:28)
[2023-02-11] MEDS: MEROPENEM 1 GM in DEXTROSE 5%-WATER 100 ML IVPB SCH ×3 (01:29→17:41)
[2023-02-11] MEDS: INSULIN ASPART SLIDING SCALE (NOVOLOG) 1 VIAL SQ SCH ×4 (06:48→21:57)
[2023-02-11] MEDS: TAMSULOSIN HCL 0.4 MG CAP PO SCH (10:18)
[2023-02-11] MEDS: POLYETHYLENE GLYCOL (HEALTHYLAX) 3350 17 GM PACKET PO SCH ×3 (10:19→21:57)
[2023-02-11] MEDS: ATORVASTATIN CA 10 MG TABLET (FP) PO SCH (21:53)
[2023-02-12] MEDS: MEROPENEM 1 GM in DEXTROSE 5%-WATER 100 ML IVPB SCH ×3 (02:04→18:07)
[2023-02-12] MEDS: INSULIN ASPART SLIDING SCALE (NOVOLOG) 1 VIAL SQ SCH ×4 (06:31→22:20)
[2023-02-12] MEDS ORDERED: INSULIN ASPART SLIDING SCALE (NOVOLOG) 1 VIAL SQ ONE (07:02)
[2023-02-12] MEDS: TAMSULOSIN HCL 0.4 MG CAP PO SCH (08:17)
[2023-02-12 09:12] LABS: HEMATOCRIT 35.8 % (35.4-49); HEMOGLOBIN 12.4 GM/dL (11.7-16.9); MCH 29.8 pg (25.7-33.7); MCHC 34.6 g/dl (32.0-35.9); MEAN CELL VOLUME 86.3 fl (80-96); MEAN PLT VOLUME 7.9 fl (7.5-11.1); PLATELET COUNT 280 10^3/uL (134-434); RBC 4.15 M/mm3 (4.00-5.60); RDW 13.7 % (11.9-15.9)
[2023-02-12] MEDS: POLYETHYLENE GLYCOL (HEALTHYLAX) 3350 17 GM PACKET PO SCH ×3 (09:22→22:20)
[2023-02-12 09:28] LABS: POTASSIUM 4.4 mmol/L (3.5-5.1)
[2023-02-12 09:57] LABS: BILIRUBIN,TOTAL 0.6 mg/dL (0.2-1); BLOOD UREA NITROGEN 18.4 mg/dL (7-18); CALCIUM 9.4 mg/dL (8.5-10.1); CREATININE 1.1 mg/dL (0.55-1.3); TOT PROT 6.8 g/dl (6.4-8.2)
[2023-02-12] MEDS: ACETAMINOPHEN 325 MG TABLET (FP) PO PRN (10:33)
[2023-02-12] MEDS: ATORVASTATIN CA 10 MG TABLET (FP) PO SCH (22:21)
[2023-02-13] MEDS: MEROPENEM 1 GM in DEXTROSE 5%-WATER 100 ML IVPB SCH ×3 (01:31→17:54)
[2023-02-13] MEDS: INSULIN ASPART SLIDING SCALE (NOVOLOG) 1 VIAL SQ SCH ×4 (07:06→21:28)
[2023-02-13] MEDS: POLYETHYLENE GLYCOL (HEALTHYLAX) 3350 17 GM PACKET PO SCH ×4 (09:16→21:28)
[2023-02-13] MEDS: TAMSULOSIN HCL 0.4 MG CAP PO SCH (09:16)
[2023-02-13] MEDS: oxyCODONE HCL 5 MG TABLET PO PRN (11:29)
[2023-02-13 16:11] LABS: ATYPICAL pANCA <1:20 titer (Neg:<1:20)
[2023-02-13] MEDS ORDERED: DOCUSATE SODIUM 100 MG CAPSULE (FP) PO PRN (18:21)
[2023-02-13] MEDS: ATORVASTATIN CA 10 MG TABLET (FP) PO SCH (21:24)
[2023-02-14] MEDS: MEROPENEM 1 GM in DEXTROSE 5%-WATER 100 ML IVPB SCH ×2 (02:21→09:27)
[2023-02-14] MEDS: INSULIN ASPART SLIDING SCALE (NOVOLOG) 1 VIAL SQ SCH ×4 (06:07→22:05)
[2023-02-14] MEDS: TAMSULOSIN HCL 0.4 MG CAP PO SCH (09:28)
[2023-02-14] MEDS: POLYETHYLENE GLYCOL (HEALTHYLAX) 3350 17 GM PACKET PO SCH (09:28)
[2023-02-14 09:40] LABS: BASO % 0.5 % (0-2.0); EOS % 2.5 % (0-4.5); HEMATOCRIT 37.9 % (35.4-49); HEMOGLOBIN 12.9 GM/dL (11.7-16.9); LYMPH % 22.8 % (8-40); MCH 29.5 pg (25.7-33.7); MEAN PLT VOLUME 7.7 fl (7.5-11.1); MONO % 7.1 % (3.8-10.2); NEUT % 67.1 % (42.8-82.8); PLATELET COUNT 308 10^3/uL (134-434); RBC 4.36 M/mm3 (4.00-5.60); RDW 13.7 % (11.9-15.9)
[2023-02-14 10:42] LABS: POTASSIUM 4.6 mmol/L (3.5-5.1)
[2023-02-14 11:23] LABS: BLOOD UREA NITROGEN 17.9 mg/dL (7-18)
[2023-02-14 11:24] LABS: ALBUMIN 3.2 g/dl (3.4-5.0); CALCIUM 10.1 mg/dL (8.5-10.1); MAGNESIUM 2.1 mg/dL (1.8-2.4)
[2023-02-14 11:26] LABS: CREATININE 1.2 mg/dL (0.55-1.3); PHOSPHOROUS 2.9 mg/dL (2.5-4.9)
[2023-02-14 11:28] LABS: BILIRUBIN,TOTAL 0.8 mg/dL (0.2-1); TOT PROT 7.3 g/dl (6.4-8.2)
[2023-02-14] MEDS: ATORVASTATIN CA 10 MG TABLET (FP) PO SCH (22:05)
[2023-02-15] MEDS: INSULIN ASPART SLIDING SCALE (NOVOLOG) 1 VIAL SQ SCH ×4 (07:12→21:26)
[2023-02-15 08:26] LABS: HEMATOCRIT 36.7 % (35.4-49); HEMOGLOBIN 12.2 GM/dL (11.7-16.9); MCH 28.9 pg (25.7-33.7); MCHC 33.3 g/dl (32.0-35.9); MEAN CELL VOLUME 86.7 fl (80-96); PLATELET COUNT 279 10^3/uL (134-434); RBC 4.23 M/mm3 (4.00-5.60); RDW 13.6 % (11.9-15.9); WHITE BLOOD COUNT 11.5 K/mm3 (4.0-10.0)
[2023-02-15] MEDS: TAMSULOSIN HCL 0.4 MG CAP PO SCH (09:21)
[2023-02-15] MEDS: oxyCODONE HCL 5 MG TABLET PO PRN (09:22)
[2023-02-15] MEDS: VANCOMYCIN ORAL SOLUTION 125 MG/2.5 ML PO SCH ×2 (13:07→17:09)
[2023-02-15] MEDS: LIDOCAINE 4% PATCH TP SCH (20:32)
[2023-02-15] MEDS: ATORVASTATIN CA 10 MG TABLET (FP) PO SCH (21:56)
[2023-02-15] MEDS: LIDOCAINE PATCH REMOVAL MC SCH (21:57)
[2023-02-16] MEDS: VANCOMYCIN ORAL SOLUTION 125 MG/2.5 ML PO SCH ×4 (02:24→17:44)
[2023-02-16] MEDS: INSULIN ASPART SLIDING SCALE (NOVOLOG) 1 VIAL SQ SCH ×4 (06:10→21:51)
[2023-02-16] MEDS: LIDOCAINE 4% PATCH TP SCH (09:52)
[2023-02-16] MEDS: oxyCODONE HCL 5 MG TABLET PO PRN (09:54)
[2023-02-16] MEDS: TAMSULOSIN HCL 0.4 MG CAP PO SCH (09:54)
[2023-02-16 11:10] LABS: BASO % 0.2 % (0-2.0); EOS % 2.3 % (0-4.5); HEMATOCRIT 37.1 % (35.4-49); HEMOGLOBIN 12.5 GM/dL (11.7-16.9); LYMPH % 17.4 % (8-40); MCH 29.4 pg (25.7-33.7); MCHC 33.7 g/dl (32.0-35.9); MEAN CELL VOLUME 87.2 fl (80-96); MEAN PLT VOLUME 8.1 fl (7.5-11.1); NEUT % 73.1 % (42.8-82.8); PLATELET COUNT 263 10^3/uL (134-434); RBC 4.25 M/mm3 (4.00-5.60); RDW 13.8 % (11.9-15.9); WHITE BLOOD COUNT 10.6 K/mm3 (4.0-10.0)
[2023-02-16 11:20] LABS: POTASSIUM 4.2 mmol/L (3.5-5.1)
[2023-02-16 11:27] LABS: BLOOD UREA NITROGEN 22.4 mg/dL (7-18)
[2023-02-16 11:29] LABS: CREATININE 1.4 mg/dL (0.55-1.3)
[2023-02-16 11:30] LABS: BILIRUBIN,TOTAL 1.1 mg/dL (0.2-1); TOT PROT 7.3 g/dl (6.4-8.2)
[2023-02-16] MEDS: LIDOCAINE PATCH REMOVAL MC SCH (21:50)
[2023-02-16] MEDS: ATORVASTATIN CA 10 MG TABLET (FP) PO SCH (21:51)
[2023-02-17] MEDS: VANCOMYCIN ORAL SOLUTION 125 MG/2.5 ML PO SCH ×4 (00:08→17:39)
[2023-02-17] MEDS: INSULIN ASPART SLIDING SCALE (NOVOLOG) 1 VIAL SQ SCH ×4 (06:34→21:50)
[2023-02-17] MEDS: TAMSULOSIN HCL 0.4 MG CAP PO SCH (10:16)
[2023-02-17] MEDS: LIDOCAINE 4% PATCH TP SCH (10:16)
[2023-02-17] MEDS: oxyCODONE HCL 5 MG TABLET PO PRN (10:16)
[2023-02-17 11:05] LABS: BASO % 0.3 % (0-2.0); EOS % 3.4 % (0-4.5); HEMATOCRIT 34.9 % (35.4-49); HEMOGLOBIN 12.1 GM/dL (11.7-16.9); LYMPH % 21.1 % (8-40); MCH 29.9 pg (25.7-33.7); MCHC 34.7 g/dl (32.0-35.9); MEAN CELL VOLUME 86.2 fl (80-96); MEAN PLT VOLUME 8.2 fl (7.5-11.1); NEUT % 67.2 % (42.8-82.8); PLATELET COUNT 243 10^3/uL (134-434); RBC 4.05 M/mm3 (4.00-5.60); RDW 13.9 % (11.9-15.9); WHITE BLOOD COUNT 7.1 K/mm3 (4.0-10.0)
[2023-02-17] MEDS: ATORVASTATIN CA 10 MG TABLET (FP) PO SCH (21:47)
[2023-02-17] MEDS: LIDOCAINE PATCH REMOVAL MC SCH (21:48)
[2023-02-18] MEDS: VANCOMYCIN ORAL SOLUTION 125 MG/2.5 ML PO SCH ×4 (00:05→17:24)
[2023-02-18] MEDS: INSULIN ASPART SLIDING SCALE (NOVOLOG) 1 VIAL SQ SCH ×4 (06:43→21:57)
[2023-02-18] MEDS: LIDOCAINE 4% PATCH TP SCH (09:20)
[2023-02-18] MEDS: TAMSULOSIN HCL 0.4 MG CAP PO SCH (09:20)
[2023-02-18 09:42] LABS: BASO % 0.4 % (0-2.0); HEMATOCRIT 34.4 % (35.4-49); HEMOGLOBIN 12.3 GM/dL (11.7-16.9); LYMPH % 21.6 % (8-40); MCH 30.4 pg (25.7-33.7); MCHC 35.7 g/dl (32.0-35.9); MEAN PLT VOLUME 8.1 fl (7.5-11.1); MONO % 10.4 % (3.8-10.2); NEUT % 63.6 % (42.8-82.8); PLATELET COUNT 263 10^3/uL (134-434); RBC 4.05 M/mm3 (4.00-5.60); RDW 13.5 % (11.9-15.9)
[2023-02-18 10:25] LABS: POTASSIUM 4.3 mmol/L (3.5-5.1)
[2023-02-18 10:32] LABS: CALCIUM 9.1 mg/dL (8.5-10.1)
[2023-02-18 10:33] LABS: BLOOD UREA NITROGEN 27.2 mg/dL (7-18)
[2023-02-18 10:36] LABS: CREATININE 1.3 mg/dL (0.55-1.3); PHOSPHOROUS 3.8 mg/dL (2.5-4.9)
[2023-02-18 10:37] LABS: TOT PROT 6.9 g/dl (6.4-8.2)
[2023-02-18 10:40] LABS: BILIRUBIN,TOTAL 0.8 mg/dL (0.2-1)
[2023-02-18] MEDS: DEXTROSE 5%-0.45% SALINE 1,000 ML IV SCH (14:48)
[2023-02-18] MEDS: POLYETHYLENE GLYCOL (HEALTHYLAX) 3350 17 GM PACKET PO SCH (21:50)
[2023-02-18] MEDS: ATORVASTATIN CA 10 MG TABLET (FP) PO SCH (21:51)
[2023-02-18] MEDS: LIDOCAINE PATCH REMOVAL MC SCH (21:51)
[2023-02-18] MEDS: oxyCODONE HCL 5 MG TABLET PO PRN (21:51)
[2023-02-19] MEDS: VANCOMYCIN ORAL SOLUTION 125 MG/2.5 ML PO SCH ×4 (00:10→17:28)
[2023-02-19] MEDS: INSULIN ASPART SLIDING SCALE (NOVOLOG) 1 VIAL SQ SCH ×4 (06:05→22:04)
[2023-02-19] MEDS: DEXTROSE 5%-0.45% SALINE 1,000 ML IV SCH (06:05)
[2023-02-19] MEDS: LIDOCAINE 4% PATCH TP SCH (09:19)
[2023-02-19] MEDS: POLYETHYLENE GLYCOL (HEALTHYLAX) 3350 17 GM PACKET PO SCH (09:19)
[2023-02-19] MEDS: TAMSULOSIN HCL 0.4 MG CAP PO SCH (09:19)
[2023-02-19] MEDS: AMINO ACIDS 4.25%/D5W 1,000 ML IV SCH (20:00)
[2023-02-19] MEDS ORDERED: INSULIN ASPART SLIDING SCALE (NOVOLOG) 1 VIAL SQ ONE (21:24)
[2023-02-19] MEDS: ATORVASTATIN CA 10 MG TABLET (FP) PO SCH (22:04)
[2023-02-19] MEDS: LIDOCAINE PATCH REMOVAL MC SCH (22:08)
[2023-02-20] MEDS: VANCOMYCIN ORAL SOLUTION 125 MG/2.5 ML PO SCH ×4 (00:40→18:26)
[2023-02-20] MEDS: INSULIN ASPART SLIDING SCALE (NOVOLOG) 1 VIAL SQ SCH ×4 (06:45→21:34)
[2023-02-20] MEDS: AMINO ACIDS 4.25%/D5W 1,000 ML IV SCH ×3 (10:45→20:58)
[2023-02-20] MEDS: LIDOCAINE 4% PATCH TP SCH (10:46)
[2023-02-20] MEDS: TAMSULOSIN HCL 0.4 MG CAP PO SCH (10:46)
[2023-02-20] MEDS: MEGESTROL ACETATE 400 MG/10 ML UNIT DOSE CUP PO SCH (10:46)
[2023-02-20 11:25] LABS: HEMATOCRIT 32.9 % (35.4-49); HEMOGLOBIN 11.1 GM/dL (11.7-16.9); MCHC 33.8 g/dl (32.0-35.9); MEAN CELL VOLUME 85.8 fl (80-96); PLATELET COUNT 242 10^3/uL (134-434); RBC 3.83 M/mm3 (4.00-5.60); RDW 13.6 % (11.9-15.9); WHITE BLOOD COUNT 5.9 K/mm3 (4.0-10.0)
[2023-02-20 12:04] LABS: POTASSIUM 4.1 mmol/L (3.5-5.1)
[2023-02-20] MEDS: ACETAMINOPHEN 325 MG TABLET (FP) PO PRN ×2 (12:22→23:13)
[2023-02-20 13:14] LABS: CALCIUM 8.4 mg/dL (8.5-10.1)
[2023-02-20 13:15] LABS: ALBUMIN 2.6 g/dl (3.4-5.0); MAGNESIUM 1.7 mg/dL (1.8-2.4)
[2023-02-20 13:18] LABS: CREATININE 1.1 mg/dL (0.55-1.3); PHOSPHOROUS 3.4 mg/dL (2.5-4.9)
[2023-02-20 13:20] LABS: BILIRUBIN,TOTAL 0.5 mg/dL (0.2-1); TOT PROT 6.3 g/dl (6.4-8.2)
[2023-02-20] MEDS: LIDOCAINE PATCH REMOVAL MC SCH (21:35)
[2023-02-20] MEDS: ATORVASTATIN CA 10 MG TABLET (FP) PO SCH (21:35)
[2023-02-21] MEDS: VANCOMYCIN ORAL SOLUTION 125 MG/2.5 ML PO SCH ×6 (00:40→23:57)
[2023-02-21] MEDS: INSULIN ASPART SLIDING SCALE (NOVOLOG) 1 VIAL SQ SCH ×4 (06:15→22:00)
[2023-02-21] MEDS: AMINO ACIDS 4.25%/D5W 1,000 ML IV SCH ×2 (06:15→21:01)
[2023-02-21] MEDS ORDERED: MAGNESIUM SULF 50% (8.12 MEQ/2 ML-1 GM VIAL) IVPB ONE (08:16)
[2023-02-21] MEDS: LIDOCAINE 4% PATCH TP SCH (10:01)
[2023-02-21] MEDS: TAMSULOSIN HCL 0.4 MG CAP PO SCH (10:02)
[2023-02-21] MEDS: MEGESTROL ACETATE 400 MG/10 ML UNIT DOSE CUP PO SCH (10:03)
[2023-02-21 10:40] LABS: HEMOGLOBIN 12.4 GM/dL (11.7-16.9); MCH 29.5 pg (25.7-33.7); MCHC 34.5 g/dl (32.0-35.9); MEAN CELL VOLUME 85.4 fl (80-96); PLATELET COUNT 288 10^3/uL (134-434); RBC 4.22 M/mm3 (4.00-5.60); RDW 13.5 % (11.9-15.9); WHITE BLOOD COUNT 7.9 K/mm3 (4.0-10.0)
[2023-02-21] MEDS ORDERED: LIDOCAINE HCL 1%, 10 MG/ML (20ML VIAL) ONE (10:52)
[2023-02-21] MEDS ORDERED: BUPIVACAINE HCL/PF 0.25% (2.5MG/ML) 10 ML VIAL ONE (10:53)
[2023-02-21] MEDS ORDERED: PROPOFOL 20 ML ONE (11:17)
[2023-02-21] MEDS ORDERED: MIDAZOLAM HCL 2 MG/2 ML SINGLE DOSE VIAL ONE (11:17)
[2023-02-21] MEDS ORDERED: ONDANSETRON 4 MG/2 ML VIAL IVPUSH PRN (11:23)
[2023-02-21] MEDS ORDERED: SUCCINYLCHOLINE CHLORIDE 200 MG/10 ML SYRINGE ONE (11:32)
[2023-02-21] MEDS ORDERED: BUPIVACAINE HCL/PF 0.25% (2.5MG/ML) 10 ML VIAL IJ ONE (12:00)
[2023-02-21] MEDS: LACTATED RINGERS SOLUTION 1,000 ML IV SCH ×2 (12:22→14:36)
[2023-02-21 15:17] VITALS: RESP 18
[2023-02-21] MEDS: ACETAMINOPHEN 325 MG TABLET (FP) PO PRN (17:21)
[2023-02-21] MEDS: ATORVASTATIN CA 10 MG TABLET (FP) PO SCH (22:05)
[2023-02-21] MEDS: LIDOCAINE PATCH REMOVAL MC SCH (22:06)
[2023-02-22] MEDS: VANCOMYCIN ORAL SOLUTION 125 MG/2.5 ML PO SCH ×3 (00:11→12:00)
[2023-02-22] MEDS: AMINO ACIDS 4.25%/D5W 1,000 ML IV SCH ×2 (06:51)
[2023-02-22] MEDS: INSULIN ASPART SLIDING SCALE (NOVOLOG) 1 VIAL SQ SCH ×2 (06:51→13:20)
[2023-02-22] MEDS: TAMSULOSIN HCL 0.4 MG CAP PO SCH (08:33)
[2023-02-22] MEDS: LIDOCAINE 4% PATCH TP SCH (10:32)
[2023-02-22] MEDS: MEGESTROL ACETATE 400 MG/10 ML UNIT DOSE CUP PO SCH ×2 (10:33→12:01)
[2023-02-22] MEDS: ACETAMINOPHEN 325 MG TABLET (FP) PO PRN (11:31)
[2023-02-22 14:39] VITALS: BP 106/53; PULSE 85; TEMP 98.3
== END 2023-02-22 15:30 | disposition home or self-care (01) | DRG 223 ==
LOC: JER 11:40 → JERBED 19:36 → J6S 21:56
PROVIDERS: ADMIT Internal Medicine; ATTEND Internal Medicine
PROC: 0DBP8ZX Excision of Rectum, Via Natural or Artificial Opening Endoscopic, Diagnostic (ICD-10-PCS; 2023-02-02)
PROC: 0DBP8ZX Excision of Rectum, Via Natural or Artificial Opening Endoscopic, Diagnostic (ICD-10-PCS; 2023-02-06)
PROC: 0DBP0ZX Excision of Rectum, Open Approach, Diagnostic (ICD-10-PCS; principal; 2023-02-21 17:45)
DX: C20 Malignant neoplasm of rectum (principal); A04.72 Enterocolitis due to Clostridium difficile, not specified as recurrent; E43 Unspecified severe protein-calorie malnutrition; N39.0 Urinary tract infection, site not specified; B96.29 Other Escherichia coli [E. coli] as the cause of diseases classified elsewhere; E11.9 Type 2 diabetes mellitus without complications; I10 Essential (primary) hypertension; I95.1 Orthostatic hypotension; K52.9 Noninfective gastroenteritis and colitis, unspecified; K59.00 Constipation, unspecified; K62.89 Other specified diseases of anus and rectum; N40.0 Benign prostatic hyperplasia without lower urinary tract symptoms; Z16.12 Extended spectrum beta lactamase (ESBL) resistance; Z68.22 Body mass index [BMI] 22.0-22.9, adult
CPT/HCPCS: 0241U-QW; 36415; 70450-TC; 71045-TC-FY; 71250-TC; 72196-TC; 74177-TC; 80048; 80053; 80076; 81003; 82378; 82962; 82977; 83735; 83880; 84100; 84153; 84484; 85025; 85027; 85610; 85730; 86140; 86256; 86480; 86593; 86671; 86704; 86780; 87086; 87186; 87324; 87340; 87389; 87449; 87493; 87517; 88305-TC; 88341-TC; 93005; 93010; 94760; 97116-GP; 97162-GP; 99285-25; Q9967

== ENCOUNTER 2023-06-12 13:48 | Inpatient (IN) | payer OTHER ==
[2023-06-12 15:49] LABS: VENOUS BASE EXCESS -2.1 mmol/L (-2-2); VENOUS O2 SATURATION 16.2 % (70-80); VENOUS PCO2 46.7 mmHg (38-52); VENOUS PH 7.329 (7.310-7.410)
[2023-06-12] MEDS: LACTATED RINGERS SOLUTION 1000 ML INFUS.BAG IV ONE ×2 (15:50→16:50)
[2023-06-12 15:52] LABS: HEMATOCRIT 33.3 % (35.4-49); HEMOGLOBIN 10.7 GM/dL (11.7-16.9); MCH 28.1 pg (25.7-33.7); MCHC 32.3 g/dl (32.0-35.9); MEAN CELL VOLUME 87.1 fl (80-96); MEAN PLT VOLUME 6.5 fl (7.5-11.1); PLATELET COUNT 221 10^3/uL (134-434); RBC 3.82 M/mm3 (4.00-5.60); RDW 17.4 % (11.9-15.9); WHITE BLOOD COUNT 7.5 K/mm3 (4.0-10.0)
[2023-06-12 15:58] LABS: INR 1.2 (0.83-1.09); PROTHROMBIN TIME (PATIENT) 13.9 SEC (9.7-13.0)
[2023-06-12 16:01] LABS: ACTIVATED PTT 36.2 SECONDS (25.2-36.5)
[2023-06-12 16:13] LABS: CALCIUM 9.2 mg/dL (8.5-10.1); CHLORIDE 100 mmol/L (98-107); POTASSIUM 4.4 mmol/L (3.5-5.1); SODIUM 137 mmol/L (136-145)
[2023-06-12 16:14] LABS: ALBUMIN 2.3 g/dl (3.4-5.0); ANION GAP 10 mmol/L (4-13); BLOOD UREA NITROGEN 19.2 mg/dL (7-18); CO2 26 mmol/L (21-32); GLUCOSE,RANDOM 92 mg/dL (74-106); MAGNESIUM 1.5 mg/dL (1.8-2.4)
[2023-06-12 16:17] LABS: CREATININE 0.9 mg/dL (0.55-1.3); PHOSPHOROUS 3.2 mg/dL (2.5-4.9); SGOT/AST 65 U/L (15-37); SGPT/ALT 29 U/L (13-61)
[2023-06-12 16:18] LABS: BILIRUBIN,TOTAL 0.7 mg/dL (0.2-1)
[2023-06-12] MEDS ORDERED: ACETAMINOPHEN INJECTION 100 ML IVPB ONE (16:18)
[2023-06-12 16:20] LABS: ALK PHOS 320 U/L (45-117)
[2023-06-12 16:21] LABS: ANISOCYTOSIS 0; HELMET CELLS 0; HOWELL-JOLLY BODIES 0; MACROCYTOSIS 0; OVALOCYTE 0; ROULEAU 0; SICKELED CELLS 0; TARGET CELLS 0; TEAR DROP CELLS 0; TOXIC GRANULATION 0
[2023-06-12] MEDS: ACETAMINOPHEN 1000 MG/100 ML BAG IVPB ONE (16:22)
[2023-06-12 16:31] LABS: LACTIC ACID 4.8 mmol/L (0.4-2.0)
[2023-06-12] MEDS ORDERED: MAGNESIUM SULFATE IN WATER 2 GM/50 ML IVPB IVPB ONE (16:56)
[2023-06-12] MEDS: MAGNESIUM SULFATE IN WATER 2 GM/50 ML IVPB IVPB ONE (17:02)
[2023-06-12 18:50] LABS: LACTIC ACID 3.7 mmol/L (0.4-2.0)
[2023-06-12] MEDS ORDERED: PIPERACILLIN/TAZOB 4.5 GM 4.5 GM/100 ML BAG IVPB ONE (19:28)
[2023-06-12] MEDS: PIPERACILLIN/TAZOB 4.5 GM 4.5 GM in DEXTROSE 5%-WATER 100 ML IVPB ONE (19:34)
[2023-06-12 19:46] LABS: EPI CELLS 25 /uL (0-25.1); HYALINE CASTS 1 /uL (0-3.1); PH,URINE 5.5 (5.0-8.0); URINE APPEARANCE CLEAR; URINE BACTERIA 42 /uL (0-1359); URINE BILIRUBIN NEGATIVE (NEGATIVE); URINE COLOR YELLOW; URINE GLUCOSE (UA) NEGATIVE (NEGATIVE); URINE KETONE NEGATIVE (NEGATIVE); URINE LEUK ESTERASE TRACE (NEGATIVE); URINE NITRITE NEGATIVE (NEGATIVE); URINE PROTEIN 1+ (NEGATIVE); URINE RBC 1648 /uL (0-23.9); URINE UROBILINOGEN 0.2 mg/dL (0.2-1.0); URINE WBC 87 /uL (0-25.8)
[2023-06-12] MEDS ORDERED: VANCOMYCIN/WATER 1250 MG 1,250 MG/250 ML BAG IVPB ONE (20:43)
[2023-06-12] MEDS: VANCOMYCIN/WATER 1250 MG 1,250 MG/250 ML BAG IVPB ONE (20:52)
[2023-06-13] MEDS: LACTATED RINGERS SOLUTION 1,000 ML/1,000 ML INFUS.BAG IV SCH (03:33)
[2023-06-13] MEDS ORDERED: MIDODRINE HCL 5 MG TABLET ONE (06:21)
[2023-06-13] MEDS ORDERED: GABAPENTIN 100 MG CAPSULE ONE (06:21)
[2023-06-13 06:33] LABS: HEMATOCRIT 26.7 % (35.4-49); HEMOGLOBIN 8.9 GM/dL (11.7-16.9); MCH 28.7 pg (25.7-33.7); MCHC 33.4 g/dl (32.0-35.9); MEAN CELL VOLUME 85.9 fl (80-96); MEAN PLT VOLUME 6.8 fl (7.5-11.1); PLATELET COUNT 173 10^3/uL (134-434); RBC 3.11 M/mm3 (4.00-5.60); RDW 17.1 % (11.9-15.9); WHITE BLOOD COUNT 8.9 K/mm3 (4.0-10.0)
[2023-06-13] MEDS: GABAPENTIN 100 MG CAPSULE PO SCH (06:37)
[2023-06-13] MEDS: MIDODRINE HCL 5 MG TABLET PO SCH (06:37)
[2023-06-13 06:49] LABS: ALBUMIN 1.8 g/dl (3.4-5.0); CALCIUM 8.6 mg/dL (8.5-10.1); MAGNESIUM 1.7 mg/dL (1.8-2.4)
[2023-06-13 06:50] LABS: BLOOD UREA NITROGEN 18.2 mg/dL (7-18)
[2023-06-13] MEDS: VANCOMYCIN ORAL SOLUTION 125 MG/2.5 ML PO SCH (06:50)
[2023-06-13 06:52] LABS: CREATININE 0.7 mg/dL (0.55-1.3); PHOSPHOROUS 3.6 mg/dL (2.5-4.9)
[2023-06-13 06:54] LABS: BILIRUBIN,TOTAL 0.6 mg/dL (0.2-1); TOT PROT 5.4 g/dl (6.4-8.2)
[2023-06-13 07:08] LABS: LACTIC ACID 2.3 mmol/L (0.4-2.0)
[2023-06-13 07:42] LABS: POTASSIUM 4.1 mmol/L (3.5-5.1)
[2023-06-13] MEDS: INSULIN ASPART SLIDING SCALE (NOVOLOG) 1 VIAL SQ SCH (08:31)
[2023-06-13] MEDS ORDERED: TAMSULOSIN HCL 0.4 MG CAP ONE (08:42)
[2023-06-13] MEDS ORDERED: MAGNESIUM SULFATE IN WATER 2 GM/50 ML IVPB IVPB ONE (08:42)
[2023-06-13] MEDS: MAGNESIUM SULF 50% (8.12 MEQ/2 ML-1 GM VIAL) IVPB ONE ×2 (09:08→16:38)
[2023-06-13] MEDS: TAMSULOSIN HCL 0.4 MG CAP PO SCH (09:08)
[2023-06-13] MEDS ORDERED: ENOXAPARIN NA (PORCINE) 40 MG/0.4 ML DISP.SYRIN SQ ONE (10:16)
[2023-06-13] MEDS ORDERED: DULoxetine HCL 30 MG CAPSULE.DR PO ONE (10:16)
[2023-06-13] MEDS: ENOXAPARIN NA (PORCINE) 40 MG/0.4 ML DISP.SYRIN SQ SCH (10:24)
[2023-06-13] MEDS: FINASTERIDE 5 MG TABLET (FP) PO SCH (10:24)
[2023-06-13] MEDS: DULoxetine HCL 30 MG CAPSULE.DR PO SCH (10:24)
[2023-06-13 11:34] LABS: HEMATOCRIT 26.5 % (35.4-49); HEMOGLOBIN 8.9 GM/dL (11.7-16.9); MCH 28.9 pg (25.7-33.7); MCHC 33.5 g/dl (32.0-35.9); MEAN CELL VOLUME 86.4 fl (80-96); MEAN PLT VOLUME 6.2 fl (7.5-11.1); PLATELET COUNT 170 10^3/uL (134-434); RBC 3.07 M/mm3 (4.00-5.60); RDW 17.3 % (11.9-15.9); WHITE BLOOD COUNT 9.8 K/mm3 (4.0-10.0)
[2023-06-13] MEDS: ATORVASTATIN CA 20 MG TABLET (FP) PO SCH (21:50)
[2023-06-13] MEDS: MIRTAZAPINE 15 MG TABLET (FP) PO SCH (21:50)
[2023-06-14] MEDS ORDERED: INSULIN (NOVOLOG) ASPART 100 UNITS/ML 10ML VIAL ONE (05:02)
[2023-06-14 08:00] LABS: HEMATOCRIT 24.7 % (35.4-49); HEMOGLOBIN 8.4 GM/dL (11.7-16.9); MCH 29.1 pg (25.7-33.7); MEAN CELL VOLUME 85.7 fl (80-96); MEAN PLT VOLUME 6.9 fl (7.5-11.1); PLATELET COUNT 165 10^3/uL (134-434); RBC 2.89 M/mm3 (4.00-5.60); RDW 16.6 % (11.9-15.9); WHITE BLOOD COUNT 8.5 K/mm3 (4.0-10.0)
[2023-06-14 08:16] LABS: POTASSIUM 3.8 mmol/L (3.5-5.1)
[2023-06-14 08:18] LABS: CALCIUM 8.3 mg/dL (8.5-10.1)
[2023-06-14 08:19] LABS: ALBUMIN 1.7 g/dl (3.4-5.0); BLOOD UREA NITROGEN 12.2 mg/dL (7-18)
[2023-06-14 08:22] LABS: CREATININE 0.5 mg/dL (0.55-1.3)
[2023-06-14 08:23] LABS: BILIRUBIN,TOTAL 0.6 mg/dL (0.2-1)
[2023-06-14 08:24] LABS: TOT PROT 5.2 g/dl (6.4-8.2)
[2023-06-14 12:01] LABS: MAGNESIUM 1.7 mg/dL (1.8-2.4)
[2023-06-14 12:05] LABS: PHOSPHOROUS 3.5 mg/dL (2.5-4.9)
[2023-06-14 16:13] VITALS: BMI 19.3
[2023-06-14] MEDS ORDERED: DEXTROSE 50%-WATER 25 GM/50 ML DISP.SYRIN IVPUSH PRN ×2 (17:19→18:41)
[2023-06-14] MEDS: AMINO ACIDS/PROTEIN HYDROLYS 30 ML LIQUID.PKT PO SCH (18:03)
[2023-06-14 22:22] VITALS: RESP 20
[2023-06-15 07:43] LABS: HEMATOCRIT 26.2 % (35.4-49); HEMOGLOBIN 8.8 GM/dL (11.7-16.9); MCH 28.8 pg (25.7-33.7); MCHC 33.4 g/dl (32.0-35.9); MEAN CELL VOLUME 86.3 fl (80-96); MEAN PLT VOLUME 6.6 fl (7.5-11.1); PLATELET COUNT 165 10^3/uL (134-434); RBC 3.04 M/mm3 (4.00-5.60); RDW 17.1 % (11.9-15.9); WHITE BLOOD COUNT 7.4 K/mm3 (4.0-10.0)
[2023-06-15 07:57] LABS: POTASSIUM 3.9 mmol/L (3.5-5.1)
[2023-06-15 08:05] LABS: ALBUMIN 1.6 g/dl (3.4-5.0); BLOOD UREA NITROGEN 8.7 mg/dL (7-18)
[2023-06-15 08:08] LABS: CREATININE 0.5 mg/dL (0.55-1.3)
[2023-06-15 08:10] LABS: BILIRUBIN,TOTAL 0.5 mg/dL (0.2-1)
[2023-06-15] MEDS: MULTIVITAMINS (DAILY MVI) TABLET (FP) PO SCH (09:10)
[2023-06-15 12:22] LABS: MAGNESIUM 1.6 mg/dL (1.8-2.4)
[2023-06-15] MEDS: MAGNESIUM 2GM/50ML STERILE WATER IVPB IVPB ONE (13:01)
[2023-06-15] MEDS: SODIUM CHLORIDE 1,000 ML IV SCH (16:37)
[2023-06-16 07:42] LABS: HEMATOCRIT 28.8 % (35.4-49); HEMOGLOBIN 9.8 GM/dL (11.7-16.9); MCH 28.9 pg (25.7-33.7); MCHC 33.8 g/dl (32.0-35.9); MEAN CELL VOLUME 85.4 fl (80-96); MEAN PLT VOLUME 6.6 fl (7.5-11.1); PLATELET COUNT 174 10^3/uL (134-434); RBC 3.38 M/mm3 (4.00-5.60); RDW 17.3 % (11.9-15.9); WHITE BLOOD COUNT 5.8 K/mm3 (4.0-10.0)
[2023-06-16 08:15] LABS: POTASSIUM 3.5 mmol/L (3.5-5.1)
[2023-06-16 08:17] LABS: CALCIUM 8.5 mg/dL (8.5-10.1)
[2023-06-16 08:18] LABS: ALBUMIN 1.8 g/dl (3.4-5.0); BLOOD UREA NITROGEN 12.4 mg/dL (7-18); MAGNESIUM 1.9 mg/dL (1.8-2.4)
[2023-06-16 08:21] LABS: CREATININE 0.6 mg/dL (0.55-1.3)
[2023-06-16 08:22] LABS: BILIRUBIN,TOTAL 0.7 mg/dL (0.2-1); TOT PROT 5.8 g/dl (6.4-8.2)
[2023-06-16 09:11] LABS: ANISOCYTOSIS 0; HELMET CELLS 0; HOWELL-JOLLY BODIES 0; MACROCYTOSIS 0; OVALOCYTE 0; ROULEAU 0; SICKELED CELLS 0; TARGET CELLS 0; TEAR DROP CELLS 0; TOXIC GRANULATION 0
[2023-06-16] MEDS ORDERED: MULTIVITAMINS (DAILY MVI) TABLET (FP) PO SCH (10:00)
[2023-06-16 19:04] VITALS: BP 103/61; PULSE 106; TEMP 97.9
== END 2023-06-16 08:30 | DRG 248 ==
LOC: JER 13:48 → JERBED 20:14 → J8W 06-13 13:49
PROVIDERS: ADMIT Internal Medicine; ATTEND Nurse Practitioner Family
DX: A04.71 Enterocolitis due to Clostridium difficile, recurrent (principal); L89.152 Pressure ulcer of sacral region, stage 2; C20 Malignant neoplasm of rectum; E11.9 Type 2 diabetes mellitus without complications; E78.5 Hyperlipidemia, unspecified; I10 Essential (primary) hypertension; N40.0 Benign prostatic hyperplasia without lower urinary tract symptoms; E44.0 Moderate protein-calorie malnutrition; Z68.1 Body mass index [BMI] 19.9 or less, adult
CPT/HCPCS: 0241U-QW; 36415; 71045-TC-FY; 80053; 81003; 82550; 82553; 82803; 82962; 83036; 83605; 83735; 84100; 84484; 85025; 85027; 85610; 85730; 86850; 86900; 86901; 87040; 87045; 87046; 87086; 87324; 87449; 87493; 93005; 93010; 99285-25; J0131